=== PATIENT | female | born 1980 | race Caucasian/White ===

== ENCOUNTER 2016-11-06 13:23 | Emergency (ER) | payer OTHER ==
[2016-11-06 13:28] VITALS: PULSE 80; TEMP 98.1; BMI 27.3
--- NOTE | 2016-11-06 13:52 | PDOC ---
History of Present Illness - General Chief Complaint: Vaginal Bleeding Stated Complaint: 11WKS , CRAMPING Time Seen by Provider: 11/06/16 13:49 History Source: Patient Exam Limitations: No Limitations - History of Present Illness Travel History: No Initial Comments: 11/06/16 15:07 Chief complaint: Vaginal bleeding Patient is a 36-year-old female, with a last menstrual's 1126 who states she is 11 weeks , saw her OB yesterday had a normal exam and ultrasound. Patient states she is now bleeding. Patient states that there are clots. GENERAL/CONSTITUTIONAL: No fever, weakness. dizziness HEAD, EYES, EARS, NOSE AND THROAT: No change in vision. No ear pain or discharge. No sore throat. CARDIOVASCULAR: No chest pain RESPIRATORY: No shortness of breath or cough GASTROINTESTINAL: No pain, nausea, vomiting, diarrhea or constipation GENITOURINARY: No dysuria, + genital bleeding, cramping MUSCULOSKELETAL: No neck or back pain SKIN: No rash NEUROLOGIC: No headache, vertigo, loss of consciousness, or loss of sensation. GENERAL: The patient is awake, alert, and fully oriented, in no acute distress. HEAD: Normal with no signs of trauma. EYES: Pupils equal, round and reactive to light, sclera anicteric, conjunctiva clear. ENT: pharynx: no erythema, no exudate, uvula midline NECK: supple CHEST: clear, nontender, rr ABD: soft, nontender Pelvic: Cervix facing posterior, some bleeding. minimal tenderness EXTREMITIES: Normal range of motion, no edema. NEUROLOGICAL: Normal speech, normal gait. SKIN: Warm, Dry Past History - Past Medical History Allergies/Adverse Reactions: Allergies Allergy/AdvReac Type Severity Reaction Status Date / Time No Known Allergies Allergy Verified 11/06/16 13:25 Home Medications: Ambulatory Orders NK [No Known Home Medication] 11/06/16 Other medical history: denies - Immunization History Immunization Up to Date: Yes (no flu) - Psycho/Social/Smoking Cessation Hx Anxiety: No Suicidal Ideation: No Smoking History: Former smoker Have you smoked in the past 12 months: No Information on smoking cessation initiated: No Hx Alcohol Use: No Drug/Substance Use Hx: No Substance Use Type: None *Physical Exam - Vital Signs Last Vital Signs Temp Pulse Resp BP Pulse Ox 98.1 F 80 20 131/84 99 11/06/16 13:25 11/06/16 13:25 11/06/16 13:25 11/06/16 13:25 11/06/16 13:25 ED Treatment Course - LABORATORY CBC & Chemistry Diagram: 11/06/16 14:50 Medical Decision Making - Medical Decision Making 11/06/16 18:39 Patient who is 11 weeks , ultrasound shows blighted ovum, quantitative hCG is just above 8000. *DC/Admit/Observation/Transfer Diagnosis at time of Disposition: Blighted ovum - Discharge Dispostion Disposition: HOME Condition at time of disposition: Stable Admit: No - Patient Instructions Printed Discharge Instructions: DI for Miscarriage Additional Instructions: Do not have sex or put anything in your vagina Follow-up with your doctor on Wednesday return to the ER if great increase in pain or bleeding
[2016-11-06 15:12] LABS: BASOPHIL 0.6 % (0-2.0); EOSINOPHIL 0.9 % (0-4.5); MCH 29.9 pg (25.7-33.7); MCHC 33.4 g/dl (32.0-36.0); MEAN CELL VOLUME 89.6 fl (80-96); NEUTROPHILS 74.3 % (42.8-82.8); PLATELET COUNT 217 K/MM3 (134-434); WHITE BLOOD COUNT 8.3 K/mm3 (4.0-10.0)
[2016-11-06 15:15] LABS: URINE APPEARANCE CLEAR; URINE BILIRUBIN NEGATIVE (NEGATIVE); URINE COLOR LTYELLOW; URINE GLUCOSE (UA) NEGATIVE (NEGATIVE); URINE KETONE NEGATIVE (NEGATIVE); URINE LEUK ESTERASE NEGATIVE (NEGATIVE); URINE NITRITE NEGATIVE (NEGATIVE); URINE PROTEIN NEGATIVE (NEGATIVE); URINE UROBILINOGEN NEGATIVE E.U./dl (0.2-1.0)
[2016-11-06 15:23] LABS: URINE BLOOD 3+ (NEGATIVE)
[2016-11-06 15:28] LABS: URINE MUCUS RARE; URINE RBC 109 /hpf (0-3); URINE WBC 4 /hpf (3-5)
--- NOTE | 2016-11-06 15:28 | PDOC ---
[id number] 99 11/06/16 13:25 11/06/16 13:25 11/06/16 13:25 11/06/16 13:25 11/06/16 13:25 - Physical Exam Comments: 11/06/16 15:28 The patient was examined by [VAISHALI Caceres] under my direct supervision. I personally evaluated the patient. I concur with the above findings and the plan of care. ED Treatment Course - LABORATORY CBC & Chemistry Diagram: 11/06/16 14:50 - ADDITIONAL ORDERS Additional order review: Laboratory Results 11/06/16 14:01 Urine Color Ltyellow Urine Appearance Clear Urine pH 5.0 Ur Specific [place] 1.020 Urine Protein Negative Urine Glucose (UA) Negative Urine Ketones Negative Urine Blood 3+ H Urine Nitrite Negative Urine Bilirubin Negative Urine Urobilinogen Negative Ur Leukocyte Esterase Negative 11/06/16 14:50 RBC 4.99 MCV 89.6 MCHC 33.4 RDW 13.0 MPV 10.0 Neutrophils % 74.3 Lymphocytes % 18.6 Monocytes % 5.6 Eosinophils % 0.9 Basophils % 0.6 *DC/Admit/Observation/Transfer Diagnosis at time of Disposition: Blighted ovum - Discharge Dispostion Disposition: HOME - Referrals Referrals: Ranjith Arizmendi MD [Primary Care Provider] - - Patient Instructions Printed Discharge Instructions: DI for Miscarriage Additional Instructions: Do not have sex or put anything in your vagina Follow-up with your doctor on Wednesday return to the ER if great increase in pain or bleeding
[2016-11-06 18:21] VITALS: BP 120/77
== END 2016-11-06 18:50 | disposition home or self-care (01) ==
LOC: JER 13:23
PROC: 3E023GC Introduction of Other Therapeutic Substance into Muscle, Percutaneous Approach (ICD-10-PCS; principal; 2016-11-06)
PROC: 3E033NZ Introduction of Analgesics, Hypnotics, Sedatives into Peripheral Vein, Percutaneous Approach (ICD-10-PCS; 2016-11-06)
PROC: 3E0337Z Introduction of Electrolytic and Water Balance Substance into Peripheral Vein, Percutaneous Approach (ICD-10-PCS; 2016-11-06)
DX: O03.9 Complete or unspecified spontaneous abortion without complication (principal)
CPT/HCPCS: 36415; 76817-TC; 81003; 81015; 84702; 85025; 86850; 86900; 86901; 96361; 96372; 96374; 99284-25

== ENCOUNTER 2016-11-07 08:36 | Emergency (ER) | payer OTHER ==
[2016-11-07 08:41] VITALS: BMI 27.3
--- NOTE | 2016-11-07 09:07 | PDOC ---
History of Present Illness - General History Source: Patient Exam Limitations: No Limitations - History of Present Illness Initial Comments: 11/07/16 10:13 The patient is a 36 year old female () with no significant past medical history who presents to the ED with increasing pelvic pain and heavy vaginal bleeding. Patient was seen in the ER yesterday for vaginal bleeding where she had an extensive workup including an ultrasound that revealed a blighted ovum. Patient was treated and discharged. She returns today for increasing pelvic pain and continuous heavy vaginal bleeding with some clots. She denies any vaginal discharge, nausea, vomiting, and diarrhea. The patient denies fever, chills, cough, SOB, chest pain, and palpitations. The patient denies dysuria, hematuria, urgency, and frequency. Allergies: NKDA Social History: No alcohol, tobacco, or drug use reported. Past Surgical History: None reported PCP: None reported <Lacey Dudley - Last Filed: 11/07/16 10:19> <China Benites - Last Filed: 11/07/16 21:12> - General Chief Complaint: Vaginal Bleeding Stated Complaint: VAGINAL PAIN Time Seen by Provider: 11/07/16 08:51 Past History <Lacey Dudley - Last Filed: 11/07/16 10:19> - Past Medical History Other medical history: none - Reproductive History (#): 4 Para: 3 - Immunization History Immunization Up to Date: Yes (no flu) - Psycho/Social/Smoking Cessation Hx Anxiety: No Suicidal Ideation: No Smoking History: Never smoked Have you smoked in the past 12 months: No Information on smoking cessation initiated: No Hx Alcohol Use: No Drug/Substance Use Hx: No Substance Use Type: None <China Benites - Last Filed: 11/07/16 21:12> - Past Medical History Allergies/Adverse Reactions: Allergies Allergy/AdvReac Type Severity Reaction Status Date / Time No Known Allergies Allergy Verified 11/07/16 08:37 Home Medications: Ambulatory Orders NK [No Known Home Medication] 11/06/16 Review of Systems - Review of Systems Able to Perform ROS?: Yes Comments:: 11/07/16 10:13 GENERAL/CONSTITUTIONAL: No fever or chills. No weakness. HEAD, EYES, EARS, NOSE AND THROAT: No change in vision. No ear pain or discharge. No sore throat. CARDIOVASCULAR: No chest pain or shortness of breath. RESPIRATORY: No cough, wheezing, or hemoptysis. GASTROINTESTINAL: +pelvic cramping No nausea, vomiting, diarrhea or constipation. GENITOURINARY: +vaginal bleeding with some clots No dysuria, frequency, or change in urination. MUSCULOSKELETAL: No joint or muscle swelling or pain. No neck or back pain. SKIN: No rash NEUROLOGIC: No headache, vertigo, loss of consciousness, or change in strength/ sensation. ENDOCRINE: No increased thirst. No abnormal weight change. HEMATOLOGIC/LYMPHATIC: No anemia, easy bleeding, or history of blood clots. ALLERGIC/IMMUNOLOGIC: No hives or skin allergy. <Lacey Dudley - Last Filed: 11/07/16 10:19> *Physical Exam - Vital Signs Last Vital Signs Temp Pulse Resp BP Pulse Ox 97.4 F L 87 18 123/83 100 11/07/16 08:38 11/07/16 08:38 11/07/16 08:38 11/07/16 08:38 11/07/16 08:38 - Physical Exam Comments: 11/07/16 10:13 GENERAL: Awake, alert, and fully oriented, in no acute distress HEAD: No signs of trauma EYES: PERRLA, EOMI, sclera anicteric, conjunctiva clear ENT: Auricles normal inspection, hearing grossly normal, nares patent, oropharynx clear without exudates. Dry mucosa NECK: Normal ROM, supple, no lymphadenopathy, JVD, or masses LUNGS: Breath sounds equal, clear to auscultation bilaterally. No wheezes, and no crackles HEART: Regular rate and rhythm, normal S1 and S2, no murmurs, rubs or gallops ABDOMEN: Soft, nontender, normoactive bowel sounds. No guarding, no rebound. No masses EXTREMITIES: Normal range of motion, no edema. No clubbing or cyanosis. No cords, erythema, or tenderness NEUROLOGICAL: Cranial nerves II through XII grossly intact. Normal speech, normal gait SKIN: Warm, Dry, normal turgor, no rashes or lesions noted. <Lacey Dudley - Last Filed: 11/07/16 10:19> - Vital Signs Last Vital Signs Temp Pulse Resp BP Pulse Ox 97.4 F L 87 18 123/83 100 11/07/16 08:38 11/07/16 08:38 11/07/16 08:38 11/07/16 08:38 11/07/16 08:38 - Physical Exam Comments: : No external lesions. Mod blood in the vault. Os open. <China Benites - Last Filed: 11/07/16 21:12> ED Treatment Course - LABORATORY CBC & Chemistry Diagram: 11/07/16 09:20 11/07/16 09:20 - ADDITIONAL ORDERS Additional order review: Laboratory Results 11/07/16 09:20 Sodium 130 L Chloride 104 Carbon Dioxide 23 Anion Gap 3 L BUN 10 Creatinine 0.8 Creat Clearance w eGFR > 60 Random Glucose 85 Calcium 7.9 L Total Protein 8.4 H Albumin 3.5 11/07/16 09:20 RBC 4.67 MCV 89.2 MCHC 33.6 RDW 13.3 MPV 9.6 Neutrophils % 79.1 Lymphocytes % 14.6 D Monocytes % 4.7 Eosinophils % 1.2 Basophils % 0.4 <Lacey Dudley - Last Filed: 11/07/16 10:19> - LABORATORY CBC & Chemistry Diagram: 11/07/16 09:20 11/07/16 10:45 <China Benites - Last Filed: 11/07/16 21:12> Medical Decision Making - Medical Decision Making 11/07/16 15:33 Late entry. Patient presented after diagnosed with blighted ovum yesterday ( previously had an IUP). She presents today mainly because she developed pain in addition to the bleeding. The bleeding was a bit heavier this morning. Her symptoms have improved after pain medication. B-HCG is decreasing. She has mild to moderate bleeding. She states that the bleeding has decreased in her time in the ED. Sono shows progression of the miscarriage. I have given methergine. She has tolerated PO and endorsed improvement in pain. Counseled her that the bleeding should continue to decrease. If it becomes heavy, the pain worsens, or if she develops symptoms of anemia, should return for further evaluation. <China Benites - Last Filed: 11/07/16 21:12> *DC/Admit/Observation/Transfer - Attestations Scribe Attestion: 11/07/16 10:13 Documentation prepared by Lacey Bharrat, acting as medical liaison for China Benites MD, MD <Lacey Dudley - Last Filed: 11/07/16 10:19> - Discharge Dispostion Admit: No <China Benites - Last Filed: 11/07/16 21:12> Diagnosis at time of Disposition: Miscarriage - Discharge Dispostion Disposition: HOME Condition at time of disposition: Stable - Referrals Referrals: Ranjith Arizmendi MD [Primary Care Provider] - - Patient Instructions Printed Discharge Instructions: DI for Miscarriage Additional Instructions: Motrin or tylenol for pain. Return to the ER for heavy bleeding, weakness, lightheadedness, or any other concerning symptoms.
[2016-11-07 09:30] LABS: BASOPHIL 0.4 % (0-2.0); EOSINOPHIL 1.2 % (0-4.5); MCHC 33.6 g/dl (32.0-36.0); MEAN CELL VOLUME 89.2 fl (80-96); MEAN PLT VOLUME 9.6 fl (7.5-11.1); NEUTROPHILS 79.1 % (42.8-82.8); PLATELET COUNT 189 K/MM3 (134-434); RDW 13.3 % (11.6-15.6); WHITE BLOOD COUNT 8.8 K/mm3 (4.0-10.0)
[2016-11-07] MEDS ORDERED: SODIUM CHLORIDE 1,000 ML IV STA (10:10)
[2016-11-07] MEDS ORDERED: morphine CARPU-JECT 4 MG/1 ML DISP.SYRIN IVPUSH ONE (10:10)
[2016-11-07] MEDS ORDERED: morphine CARPU-JECT 4 MG/1 ML DISP.SYRIN ONE (10:23)
[2016-11-07 11:20] LABS: ALBUMIN 3.7 g/dl (3.4-5.0); ANION GAP 10 (8-16); CALCIUM 8.6 mg/dL (8.5-10.1); CO2 23 mmol/L (21-32); CREATININE 0.7 mg/dL (0.55-1.02); GLUCOSE,RANDOM 88 mg/dL (74-106); SGOT/AST 40 U/L (15-37); SGPT/ALT 97 U/L (12-78)
[2016-11-07 11:37] LABS: ALK PHOS 127 U/L (45-117); BILIRUBIN,TOTAL 0.3 mg/dL (0.2-1.0); TOT PROT 7.3 g/dl (6.4-8.2)
[2016-11-07] MEDS ORDERED: METHYLERGONOVINE MALEATE 0.2 MG/1 ML AMP IM ONE (13:58)
[2016-11-07] MEDS ORDERED: METHYLERGONOVINE MALEATE 0.2 MG/1 ML AMP ONE (14:26)
[2016-11-07 16:13] VITALS: BP 120/70; PULSE 80; TEMP 98.1
== END 2016-11-07 16:14 | disposition home or self-care (01) ==
LOC: JER 08:36
PROC: 3E0337Z Introduction of Electrolytic and Water Balance Substance into Peripheral Vein, Percutaneous Approach (ICD-10-PCS; principal; 2016-11-07)
PROC: 3E033NZ Introduction of Analgesics, Hypnotics, Sedatives into Peripheral Vein, Percutaneous Approach (ICD-10-PCS; 2016-11-07)
PROC: 3E023GC Introduction of Other Therapeutic Substance into Muscle, Percutaneous Approach (ICD-10-PCS; 2016-11-07)
DX: O02.1 Missed abortion (principal); Z3A.11 11 weeks gestation of pregnancy
CPT/HCPCS: 36415; 76817-TC; 80053; 84702; 85025; 96361; 96372; 96374; 99283-25

== ENCOUNTER 2019-01-18 10:10 | Inpatient (IN) | payer OTHER ==
[2019-01-18] MEDS ORDERED: DEXTROSE 5%-LACTATED RINGERS 1,000 ML IV SCH (11:00)
[2019-01-18 11:09] LABS: BASO % 0.2 % (0-2.0); EOS % 0.4 % (0-4.5); HEMATOCRIT 38.6 % (32.4-45.2); HEMOGLOBIN 13.1 GM/dL (10.7-15.3); LYMPH % 15.4 % (8-40); MCH 30.9 pg (25.7-33.7); MCHC 33.9 g/dl (32.0-36.0); MEAN CELL VOLUME 91.3 fl (80-96); MEAN PLT VOLUME 10.7 fl (7.5-11.1); MONO % 8.4 % (3.8-10.2); NEUT % 75.6 % (42.8-82.8); PLATELET COUNT 143 K/MM3 (134-434); RBC 4.23 M/mm3 (3.60-5.2); RDW 13.9 % (11.6-15.6); WHITE BLOOD COUNT 7.6 K/mm3 (4.0-10.0)
[2019-01-18 11:21] LABS: INR 0.91 (0.83-1.09); PROTHROMBIN TIME (PATIENT) 10.7 SEC (9.7-13.0)
[2019-01-18 11:29] VITALS: BMI 31.6
[2019-01-18 11:36] LABS: ANION GAP 8 MMOL/L (8-16); BLOOD UREA NITROGEN 7 mg/dL (7-18); CALCIUM 8.8 mg/dL (8.5-10.1); CHLORIDE 107 mmol/L (98-107); CO2 23 mmol/L (21-32); CREATININE 0.6 mg/dL (0.55-1.3); GLUCOSE,RANDOM 116 mg/dL (74-106); POTASSIUM 3.8 mmol/L (3.5-5.1); SODIUM 138 mmol/L (136-145)
--- NOTE | 2019-01-18 12:34 | LDN ---
Inpatient Induction of Labor - Patient Data Physician: Nick Escobedo Para: 3 : 5 LMP: 04/18/18 Estimated date of delivery: 01/23/19 - presentation presentation: Vertex Estimated weight: 2,800 (as of 12/30/18 sono) - Documentation Known allergies identified: Allergies Allergy/AdvReac Type Severity Reaction Status Date / Time No Known Allergies Allergy Verified 01/18/19 11:14 Medical factors that could effect anesthetic choices: none Pertinent laboratory test results available: Yes Special concerns: AMA - Consent Patient counseled re: risk, benefits, and alternatives: Yes (Patient was extensively counseled regarding IOL and PROM) Consent form signed as required: Yes - Pickens score Dilation (cm): Closed Position of Cervix: Posterior Effacement %: 0-30 Station *: -3 Cervical consistency: Firm Pickens Score: 0 - Orders Orders received: Cervical Ripening (PROM at 9am with no evidence of active labor )
--- NOTE | 2019-01-18 12:43 | HP ---
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: Alzheimer's, CVA, Dementia, Migraine, Multiple Sclerosis, Peripheral Neuropathy, Parkinson's, Seizure, Syncope, TIA, Vertigo, Other Cardiovascular: No: AFIB, Aneurysm, Aortic Insufficiency, Aortic Stenosis, CAD, CHF, Deep Vein Thrombosis, HTN, Hyperlipdemia, [place], Mitral Insufficiency, Mitral Stenosis, Murmur, Pulmonary Hypertension, Other Pulmonary: No: Asthma, Bronchitis, Cancer, COPD, O2 Dependent, Pneumonia, Previously Intubated, Pulmonary Embolus, Pulmonary Fibrosis, Sleep Apnea, Other Gastrointestinal: No: Ascites, Cancer, Constipation, Crohn's Disease, Diverticulitis, Diverticulosis, Esophageal Varices, Gastritis, GERD, GI Bleed, Hemorrhoids, Hiatal Hernia, Inflamatory Bowel Disease, Irritable Bowel Disease, Pancreatitis, Peptic Ulcer Disease, Ulcerative Colitis, Other Hepatobiliary: No: Cirrhosis, Cholelithiasis, Cholecystitis, Choledocholithiasis , Hepatitis A, Hepatitis B, Hepatitis C, Other Renal/: No: Renal Failure, Renal Inusuff, BPH, Cancer, Hematuria, Hemodialysis , Neurogenic Bladder, Renal Calculi, UTI, Other Reproductive: No: Ectopic , Endometriosis, Fibroids, PID, Polycystic Ovary Syndrome, Postmenopausal, Other ...: 5 ...Para: 3 ...Term: 3 ...: 0 ...Spon : 1 ...Induced : 0 ...Multiple Gestation: 0 ...LMP: 04/18/18 ... Weeks Gestation by Dates: 39.2 ...EDC by Dates: 01/23/19 ...EDC by Sono: 01/23/19 Heme/Onc: No: Anemia, B12 Deficiency, Bleeding Disorder, Cancer, Current Chemotherapy, Current Radiation Therapy, Hemochromatosis, Hypercoaguable State, Myeloproliferative Synd, Sickle Cell Disease, Sickle Cell Trait, Thrombocytopenia, Other Infectious Disease: No: AIDS, C-Diff, Herpes Zoster, HIV, MRSA, STD's, Tuberculosis, VREF, Other Psych: No: Addictions, Anxiety, Bipolar, Depression, Panic, Psychosis, Schizophrenia, Other Musculoskeletal: No: Bursitis, Chronic low back pain, Hemiparesis, Hemiplegia, Osteoarthritis, Paraplegia, Other Rheumatology: No: Fibromyalgia, Gout, Lupus, Rheumatoid Arthritis, Sarcoidosis, Vasculitis, Other ENT: No: Allergic Rhinitis, Sinusitis, Other Endocrine: No: Swisher's Disease, Mae's Disease, Diabetes Insipidus, Diabetes Mellitus, Hyperparathyroidism, Hyperthyroidism, Hypothyroidism, Osteopenia, SIADH, Other Dermatology: No: Basal Cell, Cellulitis, Eczema, Melanoma, Psoriasis, Squamous Cell, Other - Past Surgical History Past Surgical History: Yes: None Hx Myomectomy: No Hx Transabdominal Cerclage: No - Advance Directives Advance Directives: No: Living Will, Health Care Proxy, DNR, Organ Donor, Tissue Donor, MOLST - Smoking History Smoking history: Never smoked Have you smoked in the past 12 months: No - Alcohol/Substance Use Hx Alcohol Use: No History of Substance Use: denies: None, Cocaine, Heroin, Marijuana, Prescription , Tranquilizers - Social History History of Recent Travel: No Home Medications - Allergies Allergies/Adverse Reactions: Allergies Allergy/AdvReac Type Severity Reaction Status Date / Time No Known Allergies Allergy Verified 01/18/19 11:14 - Home Medications Home Medications: Ambulatory Orders Pnv No.95/Ferrous Fum/Folic AC [ Vitamin Tablet] 1 each PO DAILY Family Disease History - Family Disease History Family Disease History: Other: Grandparent (H/O Eaton-lambert syndrome) Review of Systems - Review of Systems Constitutional: reports: No Symptoms Eyes: reports: No Symptoms HENT: reports: No Symptoms Neck: reports: No Symptoms Cardiovascular: reports: No Symptoms Respiratory: reports: No Symptoms Gastrointestinal: reports: No Symptoms Genitourinary: reports: No Symptoms Breasts: reports: No Symptoms Reported Musculoskeletal: reports: No Symptoms Integumentary: reports: No Symptoms Neurological: reports: No Symptoms Endocrine: reports: No Symptoms Hematology/Lymphatic: reports: No Symptoms Psychiatric: reports: No Symptoms Physical Exam - Maternity Vital Signs: Vital Signs Temperature 98.5 F 01/18/19 10:10 Pulse Rate 93 H 01/18/19 10:10 Respiratory Rate 18 01/18/19 10:10 Blood Pressure 117/86 01/18/19 10:10 O2 Sat by Pulse Oximetry (%) Constitutional: Yes: Well Nourished Eyes: Yes: WNL HENT: Yes: Atraumatic, Normocephalic Neck: Yes: Supple Breast(s): Yes: Other (declined) - Abdominal Exam/OB Number of Fetuses: Single Presentation: Vertex Contractions: Yes Regularity: Irregular Intensity: Unaware Monitor Mode: External Heart Rate (range): reactive Category: I Accelerations: Uniform Decelerations: None - Vaginal Exam/OB Vaginal Bleediing: No Speculum Exam: No (+ nitrizine as per nursing) Dilatation (cm): 0.5 Effacement (%): 20 Amniotic Membrane Status: Ruptured Nitrazine Test: Positive Amniotic Fluid: Yes: Clear Presentation: Vertex/Position Station: -3 - Physical Exam Musculoskeletal: Yes: WNL Extremities: Yes: WNL Edema: Yes Edema: LUE: Trace, RUE: Trace Integumentary: Yes: WNL - Labs Lab Results: CBC, BMP 01/18/19 10:50 01/18/19 10:50 Hemorrhage Risk Assessment - Risk Factors Medium Risk Factors: No: Prior , uterine surgery,or multiple laparotomies, Multiple gestation, Greater than 4 previous births, History of previous hemorrhage, Large myomas, EFW greater than 4000g, Obesity ( BMI >40), Hematocrit < 30% & other, None High Risk Factors: No: Placenta previa, low lying, Suspected accreta/ percreta, Active bleeding on admission, Platelets less than 70,000, Known coagulopathy, None Imaging - Results Ultrasound: Report Reviewed (12/30/18 and 01/13/19 sono results) Problem List - Problems (1) AMA (advanced maternal age) multigravida 35+ Code(s): O09.529 - SUPERVISION OF ELDERLY MULTIGRAVIDA, UNSPECIFIED TRIMESTER (2) PROM (premature rupture of membranes) Code(s): O42.90 - CATE ROM, 7TH0 BETW RUPT & ONST LABR, UNSP WEEKS OF GEST
[2019-01-18] MEDS: MISOPROSTOL 100 MCG TABLET PO SCH ×2 (14:40→18:40)
[2019-01-18] MEDS ORDERED: BUTORPHANOL TARTRATE 2 MG/ML VIAL ONE (22:39)
[2019-01-18] MEDS ORDERED: PROMETHAZINE HCL 25 MG/1 ML VIAL ONE (22:39)
[2019-01-18] MEDS ORDERED: OXYTOCIN 20 UNITS in 0.9% NS 20 UNIT/1,000 ML INFUS.BAG IV ONE (23:27)
[2019-01-18] MEDS ORDERED: BENZOCAINE 20% 57 GM BOTTLE TP PRN (23:43)
[2019-01-18] MEDS ORDERED: WITCH HAZEL 50% (TUCKS) 40 PAD/JAR PAD TP PRN (23:43)
[2019-01-18] MEDS ORDERED: ACETAMINOPHEN 325 MG TABLET (FP) PO PRN (23:43)
[2019-01-18] MEDS ORDERED: BENZOCAINE 28 GM HEMORRHOIDAL OINTMENT TP PRN (23:43)
[2019-01-18] MEDS ORDERED: IBUPROFEN 600 MG TABLET (FP) PO PRN (23:43)
[2019-01-18] MEDS ORDERED: BISACODYL 10 MG SUPP.RECT RC PRN (23:43)
[2019-01-18] MEDS ORDERED: METHYLERGONOVINE MALEATE 0.2 MG/1 ML AMP IM PRN (23:43)
[2019-01-18] MEDS ORDERED: OXYTOCIN 20 UNITS in 0.9% NS 20 UNIT/1,000 ML INFUS.BAG IV SCH (23:45)
--- NOTE | 2019-01-18 23:48 | PN ---
Delivery - Delivery Vaginal Delivery: Spontaneous Episiotomy/Laceration: None EBL (cc): 300 Delivery, Single - Feeding Plan Initial Plan: Elected not to breastfeed exclusively throughout hospitalization Remarks - Remarks Remarks: Normal spontaneous vaginal delivery of a live infant boy over intact perineum. Nose / Oropharynx suctioned @ perineum. Cord clamped and cut. Baby handed to nurse. Placenta expelled spontaneously intact. Mother in stable condition.
[2019-01-19] MEDS: MISOPROSTOL 100 MCG TABLET PO SCH ×2 (03:08→03:12)
[2019-01-19] MEDS: FERROUS SO4 325 MG TABLET (FP) PO SCH ×2 (09:37→23:00)
[2019-01-19] MEDS: PRENATAL VITAMINS W/ FOLIC ACID TABLET (FP) PO SCH (09:37)
[2019-01-19 09:41] LABS: BASO % 0.3 % (0-2.0); EOS % 0.1 % (0-4.5); HEMATOCRIT 37.8 % (32.4-45.2); HEMOGLOBIN 12.5 GM/dL (10.7-15.3); LYMPH % 11.9 % (8-40); MCH 30.6 pg (25.7-33.7); MCHC 33.2 g/dl (32.0-36.0); MEAN CELL VOLUME 92.1 fl (80-96); MONO % 7.1 % (3.8-10.2); NEUT % 80.6 % (42.8-82.8); PLATELET COUNT 129 K/MM3 (134-434); RDW 13.6 % (11.6-15.6); WHITE BLOOD COUNT 11.4 K/mm3 (4.0-10.0)
[2019-01-19] MEDS ORDERED: SENNOSIDES/DOCUSATE COMBO (SENNA PLUS) TABLET (UD) PO PRN (22:00)
--- NOTE | 2019-01-20 06:58 | DS ---
Physical Exam-STRUCTURAL IRON ERECTOR Vital Signs: Vital Signs Temperature 98.4 F 01/19/19 23:00 Pulse Rate 92 H 01/19/19 23:00 Respiratory Rate 20 01/19/19 23:00 Blood Pressure 121/72 01/19/19 23:00 O2 Sat by Pulse Oximetry (%) 99 01/19/19 00:45 Constitutional: Yes: Well Nourished, No Distress, Calm Eyes: Yes: WNL, Conjunctiva Clear, EOM Intact HENT: Yes: WNL, Atraumatic, Normocephalic Neck: Yes: WNL, Supple, Trachea Midline Cardiovascular: Yes: WNL, Regular Rate and Rhythm Respiratory: Yes: WNL, Regular, CTA Bilaterally Gastrointestinal: Yes: WNL ...Rectal Exam: Yes: WNL Renal/: Yes: WNL ....Post : Yes: Uterus firm, Uterus non-tender, Slight lochia rubra Breast(s): Yes: WNL Musculoskeletal: Yes: WNL Extremities: Yes: WNL Edema: No Integumentary: Yes: WNL Neurological: Yes: WNL, Alert, Oriented ...Motor Strength: WNL Psychiatric: Yes: WNL, Alert, Oriented Labs: CBC, BMP 01/19/19 07:30 01/18/19 10:50 Delivery - Delivery Vaginal Delivery: Spontaneous Type of Anesthesia: None Episiotomy/Laceration: None EBL (cc): 300 Delivery, Single - Stages of Labor Date 1st Stage Initiatied: 01/18/19 Time 1st Stage Initiated: 10:00 Date 2nd Stage Initiated: 01/18/19 Time 2nd Stage Initiated: 23:20 Date of Delivery: 01/18/19 Time of Delivery: 23:35 Time Placenta Delivered: 23:40 Placenta: Yes: Spontaneous - Condition of 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 - 1 Minute Total Score: 9 5 Minutes Total Score: 9 - Feeding Plan Initial Plan: Elected not to breastfeed exclusively throughout hospitalization Discharge Summary Reason For Visit: LABOR ADMISSION Current Active Problems AMA (advanced maternal age) multigravida 35+ (Acute) PROM (premature rupture of membranes) (Acute) Procedures: Principal: Hospital Course: no complication Condition: Good - Instructions Diet, Activity, Other Instructions: regular diet, no intercourse, follow up [facility] care 4 weeks, if fever, heavy vaginal bleeding call MD Referrals: Nick Escobedo MD [Staff Physician] - Disposition: HOME - Home Medications Comprehensive Discharge Medication List: Ambulatory Orders Pnv No.95/Ferrous Fum/Folic AC [ Vitamin Tablet] 1 each PO DAILY Ibuprofen [Motrin -] 600 mg PO QID #28 tablet 01/19/19
[2019-01-20 08:44] VITALS: BP 130/84; PULSE 94; TEMP 97.7
[2019-01-20] MEDS: FERROUS SO4 325 MG TABLET (FP) PO SCH (10:26)
[2019-01-20] MEDS: PRENATAL VITAMINS W/ FOLIC ACID TABLET (FP) PO SCH (10:26)
== END 2019-01-20 16:00 | disposition home or self-care (01) | DRG 560 ==
LOC: JLDR 10:10 → J3W 01-19 02:30
PROVIDERS: ADMIT Student in an Organized Health Care Education/Training Program; ATTEND Student in an Organized Health Care Education/Training Program
PROC: 10E0XZZ Delivery of Products of Conception, External Approach (ICD-10-PCS; principal; 2019-01-18)
DX: O42.02 Full-term premature rupture of membranes, onset of labor within 24 hours of rupture (principal); Z3A.39 39 weeks gestation of pregnancy; Z37.0 Single live birth
CPT/HCPCS: 36415; 59409; 80048; 85025; 85610; 85730; 86593; 86850; 86900; 86901

== ENCOUNTER 2019-04-14 04:57 | Day surgery (SDC) | payer OTHER ==
[2019-04-13 09:47] VITALS: BMI 27.9
[2019-04-14] MEDS ORDERED: PROPOFOL 20 ML ONE (10:24)
[2019-04-14] MEDS ORDERED: ROCURONIUM BROMIDE 50 MG/5 ML SYRINGE ONE (10:24)
[2019-04-14] MEDS ORDERED: DEXAMETHASONE SOD PHOSPHATE 4 MG/1 ML VIAL ONE (10:24)
[2019-04-14] MEDS ORDERED: MIDAZOLAM HCL 2 MG/2 ML SINGLE DOSE VIAL ONE (10:25)
--- NOTE | 2019-04-14 10:45 | HP ---
History & Physical Update - Physical Physical: No Change - Assessment Assessment: No Change - Plan Plan: No Change (Informed consnet obtained and all questions answered. Patioent expressed desired for BS as mode of sterilization)
[2019-04-14] MEDS ORDERED: BUPIVACAINE HCL/PF (5 MG/ML) 30 ML VIAL IJ ONE (11:14)
--- NOTE | 2019-04-14 12:02 | OP ---
Operative Note - Note: Operative Date: 04/14/19 Pre-Operative Diagnosis: multiparity Operation: laparoscopic bilateral salpingectomy Findings: see dictation Implants: none Surgeon: Nick Escobedo (, Dic # [id number]) Certified Lactation Educator: John Pop Anesthesia: General Specimens Removed: bilateral tubes Estimated Blood Loss (mls): 15 Drains, Volume Out (mls): 200 Operative Report Dictated: Yes
[2019-04-14] MEDS ORDERED: KETOROLAC TROMETHAMINE 30 MG/1 ML VIAL ONE (12:06)
--- NOTE | 2019-04-14 12:15 | SURG ---
Surgery Osteopathic Medicine Teacher Note Osteopathic Medicine Teacher: John Pop PA-C Date of Service: 04/14/19 Diagnosis: Elective sterilization Procedure: Laproscopic bilateral salpingectomy I was present for the entirety of the operative procedure. For further detail, please refer to operative report. Visit type - Case Type Case Type: Scheduled - Emergency Emergency Visit: No - New patient This patient is new to me today: Yes Date on this admission: 04/14/19 - Critical Care Critical Care patient: No
[2019-04-14] MEDS ORDERED: ONDANSETRON 4 MG/2 ML VIAL ONE (12:28)
[2019-04-14] MEDS ORDERED: KETOROLAC TROMETHAMINE 15 MG/ML VIAL IVPUSH ONE (12:56)
[2019-04-14] MEDS ORDERED: oxyCODONE HCL 5 MG TABLET PO PRN (12:56)
[2019-04-14] MEDS ORDERED: ONDANSETRON 4 MG/2 ML VIAL IVPUSH PRN (12:56)
[2019-04-14] MEDS ORDERED: ACETAMINOPHEN 325 MG TABLET (FP) PO ONE (12:57)
[2019-04-14] MEDS ORDERED: FAMOTIDINE 20 MG/50 ML IVPB 20 MG/50 ML MG IVPB ONE (12:58)
[2019-04-14] MEDS ORDERED: LACTATED RINGERS SOLUTION 1,000 ML IV SCH (13:00)
[2019-04-14] MEDS ORDERED: FAMOTIDINE 20 MG PREMIXED IVPB IVPB ONE (13:06)
[2019-04-14 17:36] VITALS: BP 119/62; PULSE 87; TEMP 98.1
--- NOTE | 2019-04-15 10:03 | OP ---
DATE OF OPERATION: 04/14/2019 DICTATING ATTENDING: Yazmin Carter MD PREOPERATIVE DIAGNOSIS: This is a multiparous female who desires sterilization, opted for bilateral salpingectomy as model sterilization. POSTOPERATIVE DIAGNOSIS: This is a multiparous female who desires sterilization , opted for bilateral salpingectomy as model sterilization. PROCEDURE: Laparoscopic bilateral salpingectomy. SURGEON: Yazmin Carter MD PSYCHIATRIST: ARSALAN Nascimento ANESTHESIA: General. ESTIMATED BLOOD LOSS: Minimal. INTRAVENOUS FLUIDS: Per Anesthesia. URINE: Clear urine, 200 mL. SPECIMEN: Bilateral fallopian tubes. COMPLICATIONS: None. FINDING: Normal anterior abdominal anatomy. Intraabdominal findings were consistent with normal anatomy. Bilateral tubes and ovaries and uterus were normal in appearance. No evidence of trauma or active bleeding at the point of infraumbilical laparoscopic entry. DESCRIPTION OF PROCEDURE: The patient was taken to the operating room where anesthesia was found to be adequate. She was then prepped and draped in a normal sterile fashion. A urinary Alvarenga catheter was placed atraumatically. Attention was directed to the vagina where metal retractors were utilized to grasp the anterior aspect of the cervix with atraumatic tenaculum. A HUMI manipulator was placed to a depth of 8 cm and balloon tip inflated without difficulty. All instruments were retrieved from the vagina, and attention was then redirected to anterior abdominal wall. An infraumbilical vertical incision to accommodate Franklin trocar was performed with the scalpel after local anesthetic was injected. Subcutaneous tissues were bluntly dissected, and the fascia was grasped and elevated. The fascia was transected with scissors. The peritoneum was elevated with hemostats and transected. Entry to the peritoneal cavity took place, and the Franklin trocar was placed without difficulty, insufflating media activated, and inspection with a laparoscope revealed proper placement. Inspection with the laparoscope of the intraabdominal cavity and point of entry revealed no active bleeding evidence, nor evidence of visceral trauma. The rest of the findings as previously mentioned. The uterus was elevated and bilateral tubes and ovaries visualized. Right lower quadrant 5 mm trocar was placed under constant visualization without difficulty. This was followed with a left lower quadrant 5 mm trocar, as well. The right fallopian tube was followed to its fimbriated end and elevated with atraumatic grasper. The tube was excised utilizing the LigaSure instrument. The mesosalpinx immediately adjacent to the tube was cauterized and transected. Surgical stump was noted to be dry. It needs to be noted that the procedure was done as the tube was elevated from any surrounding viscera. Attention was then redirected to the contralateral fallopian tube, which underwent the exact same procedure just described. Excellent hemostasis was noted. Secondary inspection of the surgical field and the abdomen revealed no abnormalities. The right lower quadrant trocar was removed followed by the left lower quadrant one. All insufflation media was evacuated from the abdomen, and the Franklin port was removed, as well. The infraumbilical fascial incision was reapproximated with 0 Vicryl sutures. Excellent structural approximation achieved and confirmed by the use of palpation by the surgeon. Skin incision was reapproximated with 3-0 Monocryl subcuticular sutures. Excellent hemostasis and reapproximation achieved. Attention then was redirected to the vagina where the HUMI manipulator and the Alvarenga were removed without difficulty. The patient tolerated the procedure well and is going to the recovery room in a stable condition. Instrument count was reported as correct x2 by the staff. YAZMIN CARTER MD [id number] MTDNaren
--- NOTE | 2019-04-19 19:36 | PATH ---
Surgical Pathology Report Patient Name: ELIZABET GRAVES [facility]. Rec. #: [id number] /Age/Gender: 1980 (Age: 38) / F Account: [id number] Location: [facility] SURGICAL Taken: 04/14/2019 Received: 04/14/2019 Reported: 04/19/2019 Physicians: Nick Escobedo MD Specimen(s) Received BILATERAL FALLOPIAN TUBES Clinical History Multiparity Final Diagnosis BILATERAL FALLOPIAN TUBES, LAPAROSCOPIC SALPINGECTOMY: UNREMARKABLE FALLOPIAN TUBE (INCLUDING FIMBRIATED END AND FULL LUMINAL PORTION, SHORTER). FALLOPIAN TUBE WITH PARATUBAL CYSTS AND ENDOSALPINGOSIS (INCLUDING FIMBRIATED END AND FULL LUMINAL PORTION, LONGER). Electronically Signed Steffi Rowley M.D. Gross Description Received in formalin labeled "bilateral fallopian tubes," are 2 undesignated, fimbriated fallopian tubes measuring 5.0 and 6.8 cm in length. There is a 0.8 cm in greatest dimension paratubal cyst attached to the longer fallopian tube fimbria. The outer surfaces of the fallopian tubes are kemp-garcia and smooth. Sectioning reveals unremarkable lumen. Brim Plater sections are submitted in 4 cassettes as follows: 1-shorter fallopian tube fimbria; 2-cross sections of shorter fallopian tube; 3-longer fallopian tube fimbria with paratubal cyst; 4-cross sections of longer fallopian tube. 04/14/2019 [facility]04/14/2019
== END 2019-04-14 17:10 | disposition home or self-care (01) ==
LOC: JASU-SURG 04:57
PROVIDERS: ATTEND Student in an Organized Health Care Education/Training Program
PROC: 0U574ZZ Destruction of Bilateral Fallopian Tubes, Percutaneous Endoscopic Approach (ICD-10-PCS; principal; 2019-04-14 10:00)
DX: Z30.2 Encounter for sterilization (principal)
CPT/HCPCS: 88302-TC; 94760